=== PATIENT | male | born 1945 | race Caucasian/White ===

== ENCOUNTER 2016-08-22 09:25 | Emergency (ER) | payer MEDICARE, BC ==
[2016-08-22 10:28] LABS: INR-International Normal Ratio 1.1; PTT 23.5 SEC (22.9-36.1); Prothrombin Time 14.5 SEC (12.0-14.7)
[2016-08-22 10:29] LABS: ALT (SGPT) 31 U/L (0-55); AST (SGOT) 11 U/L (5-34); Albumin 3.3 g/dL (3.4-4.8); Alkaline Phosphatase 56 U/L (40-150); Anion Gap 14 mmol/L (10-20); BUN (Urea Nitrogen) 15 mg/dL (8.4-25.7); Bilirubin, Total 0.6 mg/dL (0.2-1.2); CK (CPK) 17 U/L (30-200); Calc. Creatinine Clearance 0 mL/min (70-130); Calcium 8.1 mg/dL (7.8-10.44); Carbon Dioxide 22 mmol/L (23-31); Chloride 107 mmol/L (98-107); Estimated GFR-MDRD 83; Globulin 2.1 g/dL (2.4-3.5); Glucose 95 mg/dL (80-115); Potassium 3.6 mmol/L (3.5-5.1); Protein, Total 5.4 g/dL (5.8-8.1); Sodium 139 mmol/L (136-145)
[2016-08-22] MEDS ORDERED: Meclizine HCl 25 MG TAB ONE (10:29)
[2016-08-22] MEDS ORDERED: Ondansetron HCl/PF 4 MG/2 ML Vial ONE (10:29)
[2016-08-22 10:31] LABS: CKMB 1.4 ng/mL (0-6.6); Troponin I 0.011 ng/mL (< 0.028)
[2016-08-22 10:33] LABS: #Basophils 0.2 thou/uL (0.0-0.2); #Eosinphils 0.8 thou/uL (0.0-0.7); #Lymphocytes 1.2 thou/uL (1.20-3.40); #Monocytes 0.5 thou/uL (0.11-0.59); #Neutrophils 2.9 thou/uL (1.40-6.50); %Basophils 2.8 % (0.0-1.0); %Eosinophils 14.7 % (0.0-10.0); %Monocytes 8.4 % (0.0-10.0); %Neutrophils 52.2 % (42.0-75.0); Hemoglobin 10.5 g/dL (14.0-18.0); Mean Corpuscular HGB CONC 34.8 g/dL (32.0-36.0); Mean Corpuscular Hemoglobin 32.4 pg (27.0-31.0); Mean Corpuscular Volume 93.1 fl (80.0-94.0); Platelet Count 168 thou/uL (130-400); RBC Distribution Width 14.5 % (11.5-14.5); Red Blood Cell (RBC) Count 3.25 mill/uL (4.70-6.10); White Blood Cell (WBC) Count 5.5 thou/uL (4.8-10.8)
[2016-08-22 10:39] LABS: Manual Diff?? YES
[2016-08-22 11:21] LABS: Bilirubin Negative (Negative); Blood, Urine Negative (Negative); Clarity Clear (Clear); Glucose, Urine (Dipstick) Negative (Negative); Leukocyte Negative (Negative); Nitrite Negative (Negative); Protein, Urine (Dipstick) Negative (Neg-Trace); Specific Gravity, Urine 1.015 (1.005-1.030); Urobilinogen 0.2 mg/dL (0.2-1.0)
[2016-08-22 11:28] LABS: Bacteria/HPF None Seen HPF (None Seen); RBC/HPF 0-3 HPF (0-3); Squamous Epithelial 0-3 HPF (0-3); WBC/HPF 0-3 HPF (0-3)
--- NOTE | 2016-08-22 13:31 | RAD ---
PORTABLE CHEST: HISTORY: Syncopal episode. FINDINGS: Heart size is borderline. Mediastinal structures are unremarkable. Lungs re clear of infiltrates. IMPRESSION: Borderline heart size. POS: [facility]
--- NOTE | 2016-08-22 13:38 | CT ---
BRAIN CT WIHTOUT IV CONTRAST: HISTORY: A 71-year-old male with near-syncope, dizziness and weakness. FINDINGS: No focal mass or midline shift. Mild atrophy and chronic white matter ischemic change. 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 IMPRESSION: Mild atrophy and chronic white matter ischemic change. No mass or bleed or other acute process. POS: [facility]
== END 2016-08-22 11:46 | disposition home or self-care (01) ==
LOC: MADERS 09:25
DX: R55 Syncope and collapse (principal); D64.9 Anemia, unspecified; D17.79 Benign lipomatous neoplasm of other sites; F17.210 Nicotine dependence, cigarettes, uncomplicated; Z79.899 Other long term (current) drug therapy
CPT/HCPCS: 36415; 70450; 71010; 80053; 81003; 81015; 82553; 83735; 83880; 84443; 84484; 85025; 85610; 85730; 87040; 87086; 93005; 94760; 96374; J2405

== ENCOUNTER 2017-03-08 16:23 | Emergency (ER) | payer MEDICARE, BC ==
[~2017-03-08 16:23] MED LIST: Sodium Chloride 0.9% 1,000 ML BAG ONE
[2017-03-08] MEDS ORDERED: Aspirin 325 MG TAB ONE (17:43)
[2017-03-08 17:44] LABS: #Basophils 0.1 thou/uL (0.0-0.2); #Eosinphils 0.3 thou/uL (0.0-0.7); #Lymphocytes 1.9 thou/uL (1.20-3.40); #Monocytes 0.7 thou/uL (0.11-0.59); %Basophils 1.5 % (0.0-1.0); %Eosinophils 4.6 % (0.0-10.0); %Lymphocytes 31.6 % (21.0-51.0); %Monocytes 10.9 % (0.0-10.0); %Neutrophils 51.4 % (42.0-75.0); Hemoglobin 11.9 g/dL (14.0-18.0); Mean Corpuscular Hemoglobin 33.7 pg (27.0-31.0); Mean Corpuscular Volume 96.3 fl (80.0-94.0); Mean Platelet Volume 8.8 fL (7.4-10.4); Platelet Count 144 thou/uL (130-400); RBC Distribution Width 13.8 % (11.5-14.5); Red Blood Cell (RBC) Count 3.53 mill/uL (4.70-6.10); White Blood Cell (WBC) Count 5.9 thou/uL (4.8-10.8)
[2017-03-08 17:51] LABS: Prothrombin Time 13.6 SEC (12.0-14.7)
[2017-03-08 17:52] LABS: PTT 52.1 SEC (22.9-36.1)
[2017-03-08 18:04] LABS: CKMB 1.5 ng/mL (0-6.6); Troponin I 0.018 ng/mL (< 0.028)
[2017-03-08 18:44] LABS: Sodium 141 mmol/L (136-145)
[2017-03-08 18:45] LABS: ALT (SGPT) 28 U/L (8-55); AST (SGOT) 20 U/L (5-34); Albumin 3.5 g/dL (3.4-4.8); Alkaline Phosphatase 34 U/L (40-150); BUN (Urea Nitrogen) 16 mg/dL (8.4-25.7); Bilirubin, Total 0.5 mg/dL (0.2-1.2); CK (CPK) 32 U/L (30-200); Calc. Creatinine Clearance 0 mL/min (70-130); Calcium 8.2 mg/dL (7.8-10.44); Carbon Dioxide 23 mmol/L (23-31); Chloride 107 mmol/L (98-107); Estimated GFR-MDRD 81; Globulin 2.2 g/dL (2.4-3.5); Glucose 87 mg/dL (80-115); Potassium 3.3 mmol/L (3.5-5.1); Protein, Total 5.7 g/dL (5.8-8.1)
--- NOTE | 2017-03-08 18:51 | RAD ---
UPRIGHT PORTABLE CHEST ONE VIEW: HISTORY: A 71-year-old male with chest pain, numbness, and pain in the left arm. COMPARISON: 08/22/2016. FINDINGS: Left ICD. Right subclavian catheter injection port. Left-sided loop recorder implantable device ov erlying the left chest. No confluent pneumonia, overt edema, or pleural effusion. IMPRESSION: No acute intrathoracic disease. No pneumonia, edema, or significant pleural effusion. POS: [facility]
[2017-03-08 23:59] LABS: Anion Gap 14 mmol/L (10-20); Magnesium 1.6 mg/dL (1.6-2.6)
== END 2017-03-08 19:13 | disposition home or self-care (01) ==
LOC: MADERS 16:23
DX: Z00.00 Encounter for general adult medical examination without abnormal findings (principal); E03.9 Hypothyroidism, unspecified; F17.210 Nicotine dependence, cigarettes, uncomplicated
CPT/HCPCS: 71010; 80053; 82550; 82553; 83735; 83880; 84484; 85025; 85610; 85730; 93005; 94760; 96360; J7050

== ENCOUNTER 2019-07-07 11:19 | Emergency (ER) | payer MEDICARE, BC ==
--- NOTE | 2019-07-07 12:17 | RAD ---
RADIOGRAPH CHEST 2 VIEWS: Date: 07/07/2019 HISTORY: 74-year-old male with dyspnea, nausea, and vomiting. FINDINGS: There is no air space density, pulmonary edema, pleural effusion, pneumothorax, or cardiomegaly. There is a right IJ vascular access port with distal tip overlying SVC. There is a dual lead left subclavian transvenous permanent pacemaker. IMPRESSION: 1. No acute cardiopulmonary findings. 2. Right internal jugular implantable vascular access port. 3. Left-sided pacemaker. jn [] POS: [facility]
[2019-07-07] MEDS ORDERED: Ondansetron PF 4 MG/2 ML Vial ONE (12:20)
[2019-07-07] MEDS ORDERED: Sodium Chloride 0.9% 1,000 ML ONE (12:20)
[2019-07-07 12:59] LABS: #Basophils 0.1 thou/uL (0.0-0.2); #Lymphocytes 0.5 thou/uL (1.20-3.40); #Monocytes 0.2 thou/uL (0.11-0.59); #Neutrophils 3.1 thou/uL (1.40-6.50); %Basophils 1.3 % (0.0-1.0); %Eosinophils 0.5 % (0.0-10.0); %Lymphocytes 12.7 % (21.0-51.0); %Monocytes 5.3 % (0.0-10.0); %Neutrophils 80.1 % (42.0-75.0); Hemoglobin 7.6 g/dL (14.0-18.0); Mean Corpuscular HGB CONC 33.1 g/dL (32.0-36.0); Mean Corpuscular Hemoglobin 31.2 pg (27.0-31.0); Mean Corpuscular Volume 94.2 fL (78.0-98.0); Mean Platelet Volume 8.2 fL (7.4-10.4); Platelet Count 38 thou/uL (130-400); RBC Distribution Width 14.6 % (11.5-14.5); Red Blood Cell (RBC) Count 2.43 mill/uL (4.70-6.10); White Blood Cell (WBC) Count 3.8 thou/uL (4.8-10.8)
[2019-07-07 13:06] LABS: Anisocytosis SLIGHT = 6-15 cells (100X) (0-5/hpf); Platelet Morphology Comment Appears Decreased
[2019-07-07 13:10] LABS: ALT (SGPT) 13 U/L (8-55); AST (SGOT) 10 U/L (5-34); Albumin 3.9 g/dL (3.4-4.8); Alkaline Phosphatase 171 U/L (40-110); Anion Gap 14 mmol/L (10-20); BUN (Urea Nitrogen) 10 mg/dL (8.4-25.7); Bilirubin, Total 0.9 mg/dL (0.2-1.2); Calc. Creatinine Clearance 0 mL/min (70-130); Carbon Dioxide 18 mmol/L (23-31); Chloride 113 mmol/L (98-107); Estimated GFR-MDRD 65; Globulin 2.4 g/dL (2.4-3.5); Glucose 105 mg/dL (83-110); Magnesium 1.6 mg/dL (1.6-2.6); Protein, Total 6.3 g/dL (5.8-8.1); Sodium 141 mmol/L (136-145)
[2019-07-07] MEDS ORDERED: Sodium Chloride 0.9% 100 ML ONE (13:32)
[2019-07-07] MEDS ORDERED: Cefepime 2 GM VIAL ONE (13:32)
[2019-07-07] MEDS ORDERED: Vancomycin 1.5 GRAM/300 ML BAG 1.5 GM/300 ML BAG ONE (13:32)
--- NOTE | 2019-07-07 13:42 | CT ---
CT THORAX NONCONTRAST: DATE: 07/07/2019 HISTORY: 74-year-old male with productive cough, dyspnea, and hypoxemia. COMPARISON: None. FINDINGS: No evidence of consolidation, ground-glass lesion, pulmonary edema, pleural effusion, or pneumothorax . Images are degraded by patient breathing motion, especially in the lower lung zones. 5 mm noncalcified right lower lobe lateral base pulmonary nodule (axial image 53 of 71, series 3; sag ittal image 24 of 133, series 401; coronal image 75 of 108, series 400). No cavitary pulmonary lesion . Calcified right hilar lymph nodes. No mediastinal lymphadenopathy. Ectasia of ascending thoracic ao rta. No cardiomegaly or pericardial effusion. Heavy atherosclerotic calcification of LAD and branches . Left subclavian transvenous permanent pacemaker lead tips at right atrial appendage and upper porti on of right ventricle. Bilateral healing nonacute rib fracture deformities. Irregularity and heteroge neous density, both sclerosis and lucency, of sternal manubrium: The lucent portion of the lesion is approximately 1.5 x 1.5 x 2.5 cm. There is a right-sided vascular access port entering the inferior p ortion of the right internal jugular vein with distal tip at superior vena cava. Trachea and bilatera l major bronchi are patent and clear. IMPRESSION: 1. No acute pulmonary findings. 2. Questionable metastatic osseous lesion involving manubrium of sternum. 3. Right-sided implantable vascular access port. 4. Pacemaker. 5. Coronary atherosclerotic disease. 6. Bilateral nonacute healing rib fractures. 7. A nonspecific tiny 5 mm right lower lobe pulmonary nodule. SHONDA Gonzalez POS: [facility]
[2019-07-07 15:52] LABS: Bilirubin Negative (Negative); Blood, Urine Negative (Negative); Clarity Clear (Clear); Glucose, Urine (Dipstick) Negative (Negative); Leukocyte Negative (Negative); Nitrite Negative (Negative); Protein, Urine (Dipstick) 30 mg/dL (Neg-Trace); Urobilinogen 0.2 mg/dL (Less than 2)
[2019-07-07 15:58] LABS: Bacteria/HPF Rare-Few HPF (None Seen); RBC/HPF None Seen HPF (0-3); Squamous Epithelial 0-3 HPF (0-3); WBC/HPF 0-3 HPF (0-3)
[2019-07-07] MEDS ORDERED: Oseltamivir 75 MG CAP ONE (16:29)
[2019-07-07] MEDS ORDERED: Lorazepam 2 MG/ML VIAL ONE (17:02)
[2019-07-07] MEDS ORDERED: Acetaminophen 325 MG TAB ONE (18:19)
== END 2019-07-07 18:25 | disposition short-term general hospital (02) ==
LOC: MADERS 11:19
DX: A41.9 Sepsis, unspecified organism (principal); R19.7 Diarrhea, unspecified; J11.1 Influenza due to unidentified influenza virus with other respiratory manifestations; C90.00 Multiple myeloma not having achieved remission; R11.2 Nausea with vomiting, unspecified; E03.9 Hypothyroidism, unspecified; F17.210 Nicotine dependence, cigarettes, uncomplicated; Z79.891 Long term (current) use of opiate analgesic; Z79.899 Other long term (current) drug therapy
CPT/HCPCS: 36415; 71046; 71250; 80053; 81003; 81015; 83605; 83735; 83880; 84484; 85025; 87040; 96361; 96365; 96366; 96367; 96375; J0692; J2060; J2405; J3490; J7050